=== PATIENT | male | born 1990 | race Hispanic/Latino ===

== ENCOUNTER 2018-12-05 16:32 | Outpatient (CLI) | payer OTHER ==
--- NOTE | 2018-12-05 21:40 | RAD ---
LEFT ANKLE THREE VIEWS: 12/05/18 No fracture was seen. The ankle joint appears intact. The joint itself appears normal. IMPRESSION: No acute finding. POS: HOME
== END 2018-12-05 16:33 | disposition home or self-care (01) ==
LOC: BURRAD 16:32
PROVIDERS: ATTEND Physician Assistant
DX: M25.571 Pain in right ankle and joints of right foot (principal)

== ENCOUNTER 2019-10-28 17:16 | Emergency (ER) | payer SELFPAY ==
[2019-10-28] MEDS ORDERED: Acetaminophen 500 MG TAB ONE (18:27)
[2019-10-28] MEDS ORDERED: Prochlorperazine 10 MG/2 ML VIAL ONE (18:27)
== END 2019-10-28 18:33 | disposition home or self-care (01) ==
LOC: EDBD 17:16 → BURERS 17:16
DX: G43.909 Migraine, unspecified, not intractable, without status migrainosus (principal); J45.909 Unspecified asthma, uncomplicated
CPT/HCPCS: 96372; 99283; J0780

== ENCOUNTER 2021-10-17 13:07 | Emergency (ER) | payer SELFPAY ==
[2021-10-18 17:58] LABS: SARS-CoV-2 PCR by NAA Not Detected (NotDetected)
== END 2021-10-17 14:41 | disposition home or self-care (01) ==
LOC: BURERS 13:07
DX: B34.9 Viral infection, unspecified (principal); J45.909 Unspecified asthma, uncomplicated; Z20.822 Contact with and (suspected) exposure to COVID-19
CPT/HCPCS: 87804; 99283; U0003; U0005